=== PATIENT | male | born 1965 | race Two or more races ===

== ENCOUNTER 2020-12-31 21:40 | Emergency (ER) | payer SELFPAY ==
[~2020-12-31] VITALS: Ht 157.5 cm; Wt 59.0 kg
[2021-01-01] MEDS ORDERED: IBUP-2029 MT (00:12)
[2021-01-01] MEDS ORDERED: IBUPROFEN 600MG TABLET PO ONE (00:15)
[2021-01-01 00:32] VITALS: BP 129/89
== END 2021-01-01 00:34 | disposition home or self-care (01) ==
LOC: ER 21:40
DX: M79.18 Myalgia, other site (principal); Z59.0 Homelessness; Y93.01 Activity, walking, marching and hiking
CPT/HCPCS: 99283